=== PATIENT | female | born 1990 | race African-American/Black ===

== ENCOUNTER 2017-04-18 22:08 | Observation (INO) | payer OTHER ==
[~2017-04-18] VITALS: Ht 172.7 cm; Wt 97.5 kg
[2017-04-18] MEDS ORDERED: PREN1TAB78 PO (23:14)
[2017-04-18 23:29] LABS: CLARITY URINE CLOUDY (CLEAR); COLOR URINE YELLOW (YELLOW); GLUCOSE URINE NEGATIVE (NEGATIVE); KETONES URINE NEGATIVE (NEGATIVE); LEUKOCYTE ESTERASE URINE NEGATIVE (NEGATIVE); NITRITE URINE NEGATIVE (NEGATIVE); OCCULT BLOOD URINE NEGATIVE (NEGATIVE); PROTEIN URINE NEGATIVE (NEGATIVE); SPECIFIC GRAVITY URINE 1.019 (1.005-1.030); UROBILINOGEN URINE 0.2 E.U./dL (0.2-1.0)
[2017-04-18] MEDS ORDERED: ACETAMINOPHEN 500MG TABLET PO NR (23:45)
[2017-04-18] MEDS ORDERED: SODIUM CHLORIDE 0.45% 1,000 ML IV NR (23:45)
== END 2017-04-19 02:55 | disposition home or self-care (01) ==
LOC: L&D 22:08
PROVIDERS: ADMIT Specialist; ATTEND Specialist
DX: O26.892 Other specified pregnancy related conditions, second trimester (principal); R10.30 Lower abdominal pain, unspecified; Z3A.21 21 weeks gestation of pregnancy
CPT/HCPCS: 76805; 81001; 82731; G0378; J7030; 99281

== ENCOUNTER 2017-05-31 10:41 | Emergency (ER) | payer OTHER ==
[~2017-05-31] VITALS: Ht 172.7 cm; Wt 128.0 kg
[~2017-05-31 10:41] MED LIST: PREN1TAB78 PO
[2017-05-31] MEDS ORDERED: SODIUM CHLORIDE 0.9% 1,000 ML IV ONE (11:30)
[2017-05-31 11:50] LABS: BASOPHILS % 0.6 % (0.0-2.0); EOSINOPHILS % 0.7 % (0.0-5.0); HEMATOCRIT. 34.7 % (36.0-48.0); HEMOGLOBIN. 11.8 g/dL (12.0-16.0); LYMPHOCYTES % 15.9 % (20.0-50.0); MEAN CORPUSCULAR HEMOGLOBIN 32.9 pg (28.0-32.0); MEAN CORPUSCULAR VOLUME 97.2 fL (81.0-99.0); MEAN PLATELET VOLUME 9.4 fl (7.4-10.4); MONOCYTES % 6.4 % (2.0-8.0); NEUTROPHILS % 76.4 % (40.0-76.0); PLATELET 229 x1000/uL (130-400); RED BLOOD CELL COUNT 3.57 mill/uL (4.2-5.4); RED CELL DISTRIBUTION WIDTH 12.6 % (11.6-14.6)
[2017-05-31 11:55] LABS: CHLORIDE 103 mEq/L (98-107)
[2017-05-31 11:57] LABS: INR 0.9; PROTHROMBIN TIME 9.6 sec (9.4-11.6)
[2017-05-31 12:03] LABS: CARBON DIOXIDE 23 mEq/L (21-32)
[2017-05-31 13:21] VITALS: BP 116/62
== END 2017-05-31 14:40 | disposition home or self-care (01) ==
LOC: ER 10:41
DX: O26.893 Other specified pregnancy related conditions, third trimester (principal); R07.89 Other chest pain; R00.0 Tachycardia, unspecified; Z3A.00 Weeks of gestation of pregnancy not specified
CPT/HCPCS: 36415; 80053; 83690; 85025; 85610; 93005; 96360; 99285; J7030; Z7610

== ENCOUNTER 2020-02-09 20:35 | Emergency (ER) | payer MEDICAID, OTHER ==
[~2020-02-09] VITALS: Ht 172.7 cm; Wt 127.0 kg
[2020-02-09] MEDS ORDERED: IBUPROFEN 800MG TABLET PO ONE (22:00)
[2020-02-09 22:15] VITALS: BP 152/87
== END 2020-02-09 22:17 | disposition home or self-care (01) ==
LOC: ER 20:35
DX: J02.9 Acute pharyngitis, unspecified (principal); Z98.890 Other specified postprocedural states
CPT/HCPCS: 81025; 99282